=== PATIENT | female | born 1995 | race Caucasian/White ===

== ENCOUNTER 2023-04-28 04:58 | Inpatient (IN) | payer BC ==
[2023-04-28] MEDS ORDERED: CARBOPROST TROMETHAMINE 250 MCG/ML 1 ML AMP IM PRN (05:28)
[2023-04-28] MEDS ORDERED: TRANEXAMIC 1,000 MG/100ML-NACL 1,000 MG in EMPTY BAG 1 BAG IV PRN (05:28)
[2023-04-28] MEDS ORDERED: METHYLERGONOVINE 0.2 MG/ML 1 ML AMP IM PRN (05:28)
[2023-04-28] MEDS ORDERED: TERBUTALINE 1 MG/ML VIAL SQ PRN (05:28)
[2023-04-28] MEDS ORDERED: OXYTOCIN 10 UNIT/ML 1 ML VIAL IM PRN (05:28)
[2023-04-28] MEDS ORDERED: LIDOCAINE 0.5% (PF) 5 MG/ML (50 ML SDV) SQ PRN (05:28)
[2023-04-28] MEDS ORDERED: miSOPROStoL 200 MCG TAB PO PRN (05:28)
[2023-04-28] MEDS ORDERED: OXYTOCIN 30 UNITS/500 ML NS 30 UNIT in SALINE 1 500ML.BAG IV SCH ×2 (05:30→12:25)
[2023-04-28] MEDS: LACTATED RINGERS 1,000 ML IV SCH ×2 (05:45→09:16)
[2023-04-28 05:59] LABS: Basophils % (A) 0 %; Eosinophils # (A) 0.1 k/uL (0-0.7); Eosinophils % (A) 1 %; HCT 35.4 % (34.0-46.0); Lymphocytes # (A) 2.4 k/uL (1.0-4.8); Lymphocytes % (A) 23 %; MCH 29.1 pg (25.0-35.0); MCV 85.7 fL (80.0-100.0); Mean Platelet Volume 11.3; Monocytes # (A) 0.4 k/uL (0-1.0); Monocytes % (A) 4 %; Neutrophils # (A) 7.3 k/uL (1.3-7.7); Neutrophils % (A) 70 %; Platelet Count 122 k/uL (150-450); RBC 4.13 m/uL (3.80-5.40); RDW 13.5 % (11.5-15.5); WBC 10.5 k/uL (3.8-10.6)
[2023-04-28 06:09] LABS: INR 0.8 (<1.2); Partial Thromboplastin Time 22.8 sec (22.0-30.0); Prothrombin Time 9.4 sec (10.0-12.5)
[2023-04-28] MEDS ORDERED: SODIUM CHLORIDE 0.9% 250 ML BAG ONE (06:24)
[2023-04-28] MEDS ORDERED: fentaNYL (PF) 50 MCG/ML 5 ML AMP ONE (06:24)
[2023-04-28] MEDS ORDERED: ROPIVACAINE 5 MG/ML 30 ML VIAL ONE (06:24)
--- NOTE | 2023-04-28 08:14 | P.HPOB ---
History of Present Illness H&P Date: 04/28/23 Chief Complaint: Contractions This is a 27-year-old female 1 para 0 with an estimated date of confinement of 05/05/2023, estimated gestational age of 39-0/7 weeks, who presented to labor and delivery with complaints of contractions that began last night that became stronger this morning. She denied any rupture of membranes. care has been with Dr. Rodriges and has been uncomplicated per patient. labs: Group B streptococcus-negative One hour Glucola-134 Three-hour Glucola-within normal limits [id number] Hemoglobin-13 Blood type-O+ Antibody screen-negative Rubella-immune RPR-nonreactive Hepatitis C-negative nonreactive Random glucose-75 Hepatitis B surface antigen-negative GC/chlamydia/Trichomonas-negative Obstetrical history: Gynecologic history: No history of sexually transmitted diseases Social history: She is . She works part-time as an RN at [employer] Review of Systems Constitutional: Denies chills, Denies fever Eyes: denies blurred vision, denies pain Ears, nose, mouth and throat: Denies headache, Denies sore throat Cardiovascular: Denies chest pain, Denies shortness of breath Respiratory: Denies cough Gastrointestinal: Reports abdominal pain (Contractions) Genitourinary: Reports pelvic pain, Reports Musculoskeletal: Reports low back pain Integumentary: Denies pruritus, Denies rash Neurological: Denies numbness, Denies weakness Psychiatric: Denies anxiety, Denies depression Past Medical History Past Medical History: No Reported History History of Any Multi-Drug Resistant Organisms: None Reported Past Surgical History: Breast Surgery Additional Past Surgical History / Comment(s): Lumpectomy-benign Past Anesthesia/Blood Transfusion Reactions: No Reported Reaction Past Psychological History: No Psychological Hx Reported Smoking Status: Never smoker Past Alcohol Use History: None Reported Past Drug Use History: None Reported - Past Family History Mother Family Medical History: No Reported History Medications and Allergies Home Medications Medication Instructions Recorded Confirmed Type Vit No.179/Iron/Folic 04/28/23 History [ Tablet] Allergies Allergy/AdvReac Type Severity Reaction Status Date / Time No Known Allergies Allergy Verified 04/28/23 05:28 Exam Osteopathic Statement: *. No significant issues noted on an osteopathic structural exam other than those noted in the History and Physical/Consult. Intake and Output 04/27/23 04/28/23 04/28/23 22:59 06:59 14:59 Other: # Voids 1 Weight 77.111 kg HEENT: Within normal limits Heart: Regular rate and rhythm Lungs: Clear to auscultation bilaterally Abdomen: Cervix: On admission is 5 cm/80%/-2 station. Currently she is 7 cm/90%/-2 station. Spontaneous rupture membranes occurred approximately 7:15 AM with clear fluid however there does appear to be a yellowish tinge now. heart tones: Baseline 110s with good variability and accelerations. Occasional early deceleration Extremities: Negative Homans Results Result Diagrams: 04/28/23 05:35 Abnormal Lab Results - Last 24 Hours (Table) 04/28/23 04/28/23 Range/Units 05:35 05:35 Plt Count 122 L (150-450) k/uL PT 9.4 L (10.0-12.5) sec Assessment and Plan (1) 39 weeks gestation of Current Visit: Yes Status: Acute Code(s): Z3A.39 - 39 WEEKS GESTATION OF SNOMED Code(s): 52872441 Plan: Admission for active labor. Expectant management. Epidural.
[2023-04-28] MEDS ORDERED: diphenhydrAMINE 50 MG/ML 1 ML VIAL IVP PRN ×2 (12:25)
[2023-04-28] MEDS ORDERED: ACETAMINOPHEN TAB 325 MG TAB PO PRN (12:25)
[2023-04-28] MEDS ORDERED: BENZOCAINE/MENTHOL SPRAY 1 GM/SPRAY AEROSOL TOPICAL PRN (12:25)
[2023-04-28] MEDS ORDERED: diphenhydrAMINE 50 MG CAP PO PRN (12:25)
[2023-04-28] MEDS ORDERED: HYDROCORTISONE 2.5% RECTAL CREAM 30 GM TUBE RECTAL PRN (12:25)
[2023-04-28] MEDS ORDERED: SIMETHICONE 80 MG CHEWABLE PO PRN (12:25)
[2023-04-28] MEDS ORDERED: diphenhydrAMINE 25 MG CAP PO PRN (12:25)
[2023-04-28] MEDS ORDERED: LANOLIN CREAM 5 GM TUBE TOPICAL PRN (12:25)
[2023-04-28] MEDS ORDERED: ZOLPIDEM 5 MG TAB PO PRN (12:25)
--- NOTE | 2023-04-28 12:35 | P.PROBDLV ---
Vaginal Delivery Note - . Vaginal Delivery Note: The patient progressed to complete dilation after epidural anesthesia. She pushed for a little over an hour and a half and then brought 's head to a crown. 's head delivered across the perineum followed by the anterior shoulder. Nose and mouth were bulb suctioned. Thin meconium was noted at this time. With one further push the remainder the delivered across the perineum with nuchal cord times one reduced around the body with delivery. was placed on mother's abdomen and nose and mouth were again bulb suctioned. Cord was clamped and cut and was allowed to pickett with mother with skin to skin. A viable male infant was noted with scores of 8 at 1 minute and 9 at 5 minutes and infant weight of 7 pounds 12.5 ounces. Cord blood was obtained secondary to O+ blood type. Placenta delivered shortly thereafter, intact, with a three-vessel cord. Uterus contracted well after oxytocin was given and uterine massage was carried out. Inspection of the perineum revealed a right periurethral laceration that extended slightly into the vaginal sulcus on the right. This area was anesthetized with 1% lidocaine and sutured with 3-0 and 2-0 Vicryl suture in a running locked fashion. Estimated blood loss is approximately 150 mL's. Bladder was drained with a catheter with clear urine noted. Both mother and are in stable condition.
[2023-04-28] MEDS: IBUPROFEN 600 MG TAB PO PRN (13:58)
[2023-04-28] MEDS: SENNOSIDES-DOCUSATE SODIUM 1 EACH TAB PO SCH (20:58)
[2023-04-29] MEDS: IBUPROFEN 600 MG TAB PO PRN ×3 (00:39→13:38)
[2023-04-29 01:29] VITALS: RESP 16
[2023-04-29 07:48] LABS: Basophils % (A) 0 %; Eosinophils # (A) 0.1 k/uL (0-0.7); Eosinophils % (A) 1 %; HCT 31.8 % (34.0-46.0); HGB 10.7 gm/dL (11.4-16.0); Lymphocytes # (A) 1.9 k/uL (1.0-4.8); Lymphocytes % (A) 15 %; MCH 29.4 pg (25.0-35.0); MCHC 33.5 g/dL (31.0-37.0); MCV 87.8 fL (80.0-100.0); Monocytes # (A) 0.5 k/uL (0-1.0); Monocytes % (A) 4 %; Neutrophils # (A) 10.1 k/uL (1.3-7.7); Neutrophils % (A) 79 %; Platelet Count 123 k/uL (150-450); RBC 3.62 m/uL (3.80-5.40); RDW 13.6 % (11.5-15.5); WBC 12.8 k/uL (3.8-10.6)
[2023-04-29] MEDS: SENNOSIDES-DOCUSATE SODIUM 1 EACH TAB PO SCH (07:51)
[2023-04-29 09:03] VITALS: BP 120/79; PULSE 84; TEMP 98.1
--- NOTE | 2023-04-29 11:22 | P.DS ---
Providers Date of admission: 04/28/23 05:17 Expected date of discharge: 04/29/23 Attending physician: Nicholas Rodriges Primary care physician: Stated None - Discharge Diagnosis(es) (1) 39 weeks gestation of Current Visit: Yes Status: Acute Hospital Course: This is a 27-year-old female 1 para 0 at 39-0/7 weeks who presented with active labor. She delivered a viable male infant on 04/28/2023 with scores of 8 at 1 minute and 9 at 5 minutes and infant weight of 7 pounds 12.5 ounces. Her course has been uncomplicated. Lochia has been decreasing. Her pain is been fairly well-controlled with ibuprofen. She is breast-feeding. Vital signs are stable. Abdomen is soft with fundus firm and nontender. Extremities show negative Homans. Impression is status post vaginal delivery day #1. Plan is to discharge home today. Routine instructions are given. She is advised to follow up in the office with Dr. Rodriges in 6 weeks. She is advised to call the office if she has any further questions or concerns prior to her appointment time. She will be given a prescription for ibuprofen. She states she has a breast pump at home. Procedures: Spontaneous vaginal delivery of a viable male on 04/28/2023 Patient Condition at Discharge: Stable Plan - Discharge Summary New Discharge Prescriptions: New Ibuprofen [Motrin] 600 mg PO Q6HR PRN #60 tab PRN Reason: Mild Pain (Scale 1 To 3) Continue Vit No.179/Iron/Folic [ Tablet] Discharge Medication List Vit No.179/Iron/Folic [ Tablet] 04/28/23 [History] Ibuprofen [Motrin] 600 mg PO Q6HR PRN #60 tab 04/29/23 [Rx] Follow up Appointment(s)/Referral(s): Nicholas Rodriges MD [STAFF PHYSICIAN] - 1 Week Activity/Diet/Wound Care/Special Instructions: Instructions 1. Do not begin any exercise program for 3 weeks. 2. Do not resume sexual relations for 3 weeks or longer if uncomfortable. 3. You may take tub baths or showers at any time. 4. You may use tampons if desired after 3 weeks. 5. Keep the area of episiotomy (stitches) clean and dry. 6. If you are not nursing, wear a good fitting, supportive bra during the day and limit fluid intake for at least 1 week to prevent breast engorgement. 7. Call the office, [phone], within the next week to make appointment for your 6 week checkup if it has not already been made. 8. Report any of the following occurrences to the doctor promptly: a. Heavy, excessive bleeding b. Chills, fever c. Burning or frequency of urination d. Pain or redness and breasts if nursing e. Increasing pain or swelling in episiotomy (stitches). In addition to the above instructions, the following additional should be followed: 1. No heavy lifting or straining (exercising) until after 6 week checkup. 2. Keep abdominal incision clean and dry: You may wear a dressing if more comfortable. 3. Make office appointment for 10 days after going home or as instructed by her doctor. Discharge Disposition: HOME SELF-CARE
--- NOTE | 2023-04-29 11:24 | P.MSEPDOC ---
Presenting Problems - Arrival Data Date of Arrival on Unit: 04/28/23 Time of Arrival on Unit: 05:20 Mode of Transport: Ambulatory - Complaint OB-Reason for Admission/Chief Complaint: Possible Onset of Labor Comment: Presents to triage with c/o cx since 229, states 2 min apart, rates 8/10 Medical History - Information : 1 Para: 0 Term: 0 : 0 Abortions: Spontaneous or Elective: 0 Number of Living Children: 0 - Gestational Age Gestational Age by [place] (wks/days): 39 Weeks and 0 Days Review of Systems - Review of Systems Constitutional: No problems Breast: No problems ENT: No problems Cardiovascular: No problems Respiratory: No problems Gastrointestinal: No problems Genitourinary: No problems Musculoskeletal: No problems Neurological: No problems Skin: No problems Vital Signs - Temperature Temperature: 98.1 F Temperature Source: Oral - Pulse Pulse Oximetery Pulse Rate: 84 Pulse Assessment Method: Pulse Oximetry - Respirations Respiratory Rate: 16 Oxygen Delivery Method: Room Air O2 Sat by Pulse Oximetry: 97 - Blood Pressure Right Arm Blood Pressure: 120/79 Blood Pressure Mean: 92 Blood Pressure Source: Automatic Cuff Medical Screen Scoring - Cervical Exam Dilation (cm): 5 Effacement (%): 70 Station: -2 Membranes: Intact Physician Notification - Physician Notified Physician Notified Date: 04/28/23 Physician Notified Time: 05:20 Physician: Yuly Peterson Order Received: Yes - Notification Comment Comment: Pt 39 weeks, c/o cx since 229 today rates 8/10. GBS neg, wants epidural, baby reactive, orders to admit to LD Maternal Triage Index - Stat/Priority 1 Stat Priority 1: No - Urgent/Priority 2 Urgent Priority 2: No - Prompt/Priority 3 Prompt Priority 3: Yes Criteria Met for Priority 3: Cx since 229 2 min apart, 570/-2 exam. Disposition - Disposition OB Disposition: Admit, LDRP Suite I agree with the RN Medical Screening Exam: Yes Case reviewed; plan agreed upon as documented in EMR&OBIX.: Yes Diagnosis: ENCOUNTER FOR FULL-TERM UNCOMPLICATED DELIVERY
== END 2023-04-29 13:40 | disposition home or self-care (01) | DRG 807 ==
LOC: FBPOP 04:58 → 4FBP 05:17
PROVIDERS: ADMIT Obstetrics & Gynecology; ATTEND Obstetrics & Gynecology
PROC: 10E0XZZ Delivery of Products of Conception, External Approach (ICD-10-PCS; principal; 2023-04-28)
PROC: 0UQMXZZ Repair Vulva, External Approach (ICD-10-PCS; principal; 2023-04-28)
DX: O69.81X0 Labor and delivery complicated by cord around neck, without compression, not applicable or unspecified (principal); Z37.0 Single live birth; O77.0 Labor and delivery complicated by meconium in amniotic fluid; Z3A.39 39 weeks gestation of pregnancy; O71.82 Other specified trauma to perineum and vulva; Z79.899 Other long term (current) drug therapy
CPT/HCPCS: 85025; 85610; 85730; 86850; 86900; 86901